=== PATIENT | female | born 1990 | race American Indian/Alaskan Native ===

== ENCOUNTER 2016-11-30 10:23 | Emergency (ER) | payer SELFPAY ==
[2016-11-30 11:03] VITALS: BP 130/71
[2016-11-30 11:47] LABS: Basophils % (Auto) 0.6 % (0.0-1.8); Eosinophils % (Auto) 0.1 % (0.0-4.3); Hematocrit 40.9 % (30.3-42.9); Hemoglobin 13.2 gm/dl (10.1-14.3); Mean Corpuscular HGB Conc 32 % (30-34); Mean Corpuscular Hemoglobin 27 pg (28-32); Mean Corpuscular Volume 83 fl (79-97); Platelet Count 334 K/mm3 (140-440); Red Blood Count 4.91 M/mm3 (3.65-5.03); Red Cell Distribution Width 15.3 % (13.2-15.2); White Blood Count 11.7 K/mm3 (4.5-11.0)
[2016-11-30 12:01] LABS: Alanine Aminotransferase 19 units/L (7-56); Albumin 4.6 g/dL (3.9-5); Albumin/Globulin Ratio 1.4 %; Alkaline Phosphatase 61 units/L (35-129); Anion Gap 20 mmol/L; BUN/Creatinine Ratio 13.33; Bilirubin,Total 0.4 mg/dL (0.1-1.2); Blood Urea Nitrogen 8 mg/dL (7-17); Calcium 9.6 mg/dL (8.4-10.2); Carbon Dioxide 22 mmol/L (22-30); Chloride 102.3 mmol/L (98-107); Glucose 147 mg/dL (65-100); Lipase 17 units/L (13-60); Potassium 3.6 mmol/L (3.6-5.0); Sodium 141 mmol/L (137-145)
[2016-11-30 13:56] LABS: Bilirubin,Urine NEG (Negative); Blood,Urine NEG (Negative); Ketones,Urine 20 mg/dL (Negative); Leukocyte Esterase,Urine NEG (Negative); Nitrite,Urine NEG (Negative); Urobilinogen,Urine < 2.0 mg/dL (<2.0)
[2016-11-30] MEDS ORDERED: DILAUDID ONE (14:19)
--- NOTE | 2016-12-04 15:39 | ED Elopement Review ---
ED Pt Elopement review - Results review Lab results: Laboratory Tests 11/30/16 11/30/16 11/30/16 11:28 11:28 13:28 WBC 11.7 H RBC 4.91 Hgb 13.2 Hct 40.9 MCV 83 MCH 27 L MCHC 32 RDW 15.3 H Plt Count 334 Lymph % (Auto) 13.3 L [place] % (Auto) 4.5 Eos % (Auto) 0.1 Baso % (Auto) 0.6 Lymph # 1.6 [place] # 0.5 Eos # 0.0 Baso # 0.1 Seg Neutrophils % 81.5 H Seg Neutrophils # 9.6 H Carbon Dioxide 22 BUN 8 Creatinine 0.6 L Estimated GFR > 60 BUN/Creatinine Ratio 13.33 Glucose 147 H Calcium 9.6 Total Bilirubin 0.4 AST 22 ALT 19 Alkaline Phosphatase 61 Total Protein 8.0 Albumin 4.6 Albumin/Globulin Ratio 1.4 Lipase 17 Urine Color Yellow Urine Turbidity Clear Urine pH 9.0 H Ur Specific [place] 1.014 Urine Protein 30 mg/dl Urine Glucose (UA) Neg Urine Ketones 20 Urine Blood Neg Urine Nitrite Neg Urine Bilirubin Neg Urine Urobilinogen < 2.0 Ur Leukocyte Esterase Neg Urine WBC (Auto) 2.0 Urine RBC (Auto) 3.0 U Epithel Cells (Auto) 3.0 Urine HCG, Qual Negative - Call Back decision Pt Call Back Decision: No action required
== END 2016-11-30 23:32 | disposition left against medical advice (07) ==
LOC: ED 10:23
DX: R11.10 Vomiting, unspecified (principal); R19.7 Diarrhea, unspecified; R10.9 Unspecified abdominal pain; Z53.21 Procedure and treatment not carried out due to patient leaving prior to being seen by health care provider
CPT/HCPCS: 36415; 80053; 81001; 81025; 83690; 85025; J1170